=== PATIENT | female | born 1965 | race African-American/Black ===

== ENCOUNTER 2023-12-07 08:58 | Observation (INO) | payer MEDICARE, OTHER ==
[2023-12-07] MEDS: ASPIRIN 81 MG PO STA (09:17)
--- NOTE | 2023-12-07 09:18 | ED ---
General Adult HPI - General Chief complaint: Chest Pain Stated complaint: Chest pain Time Seen by Provider: 12/07/23 09:03 Source: patient, EMS, RN notes reviewed Mode of arrival: EMS Limitations: no limitations - History of Present Illness Initial comments: Patient is a 58-year-old female present to the emergency department with concerns for chest discomfort. Onset of symptoms was yesterday, worse today. No known history of similar symptoms previously. Discomfort is described as squeezing. Discomfort is rated 8/10. Patient does have associated dyspnea and nausea. Patient also has a headache which is very chronic for her secondary to history of migraines. Patient states she takes Imitrex a couple of times per week for this and does request this. Headache is similar to previous headaches. Patient also request food. - Related Data Home Medications Medication Instructions Recorded Confirmed Acetaminophen Tab [Tylenol] 650 mg PO Q4H 12/07/23 12/07/23 Aspirin EC [Ecotrin Low Dose] 81 mg PO DAILY 12/07/23 12/07/23 Atorvastatin [Lipitor] 20 mg PO HS 12/07/23 12/07/23 Ensure 1 can PO DAILY 12/07/23 12/07/23 FLUoxetine HCL [PROzac] 20 mg PO DAILY 12/07/23 12/07/23 Gabapentin 300 mg PO TID 12/07/23 12/07/23 Hyoscyamine Sulfate [Levsin] 0.125 mg PO QID PRN 12/07/23 12/07/23 Ibuprofen [Motrin Ib] 600 mg PO Q6H PRN 12/07/23 12/07/23 Levothyroxine Sodium [Synthroid] 50 mcg PO DAILY 12/07/23 12/07/23 Melatonin 10 mg PO HS 12/07/23 12/07/23 Mylanta 30 ml PO Q4H PRN 12/07/23 12/07/23 OLANZapine [ZyPREXA] 20 mg PO BID 12/07/23 12/07/23 OXcarbazepine [Trileptal] 600 mg PO DAILY 12/07/23 12/07/23 Pantoprazole Sodium [Protonix] 40 mg PO DAILY 12/07/23 12/07/23 amLODIPine [Norvasc] 2.5 mg PO DAILY 12/07/23 12/07/23 busPIRone HCl [Buspar] 10 mg PO BID 12/07/23 12/07/23 levETIRAcetam [Keppra] 500 mg PO BID 12/07/23 12/07/23 ondansetron HCL [Zofran] 8 mg PO Q6H PRN 12/07/23 12/07/23 traZODone HCL [Desyrel] 50 - 150 mg PO HS PRN 12/07/23 12/07/23 Allergies Allergy/AdvReac Type Severity Reaction Status Date / Time No Known Allergies Allergy Verified 12/07/23 10:19 Review of Systems ROS Statement: Those systems with pertinent positive or pertinent negative responses have been documented in the HPI. ROS Other: All systems not noted in ROS Statement are negative. Constitutional: Denies: fever Eyes: Denies: eye pain ENT: Denies: ear pain Respiratory: Reports: as per HPI, dyspnea. Denies: cough Cardiovascular: Reports: as per HPI, chest pain Gastrointestinal: Reports: nausea. Denies: abdominal pain Musculoskeletal: Denies: back pain Skin: Denies: rash Neurological: Denies: weakness Past Medical History Additional Past Medical History / Comment(s): Anemia, Epilepsy History of Any Multi-Drug Resistant Organisms: None Reported Past Surgical History: Bariatric Surgery Additional Past Surgical History / Comment(s): gastric bypass ; 2020 Past Psychological History: No Psychological Hx Reported Smoking Status: Former smoker Past Alcohol Use History: Abuse, Daily Past Drug Use History: None Reported General Exam Limitations: no limitations General appearance: alert, in no apparent distress Head exam: Present: normocephalic Eye exam: Present: normal appearance Neck exam: Present: normal inspection Respiratory exam: Present: normal lung sounds bilaterally. Absent: chest wall tenderness Cardiovascular Exam: Present: regular rate, normal rhythm Expanded Peripheral pulses: 2+: Radial (R), Radial (L), Posterior Tibialis (R), Posterior Tibialis (L) GI/Abdominal exam: Present: soft. Absent: distended, tenderness Extremities exam: Present: normal inspection. Absent: pedal edema, calf tenderness Neurological exam: Present: alert Psychiatric exam: Present: normal affect, normal mood Skin exam: Present: normal color Course Vital Signs 12/07/23 12/07/23 09:00 11:03 Temperature 98.5 F Pulse Rate 61 62 Respiratory 16 18 Rate Blood Pressure 140/96 169/94 O2 Sat by Pulse 99 97 Oximetry EKG Findings - EKG Results: EKG: interpreted by ERMD, sinus rhythm, normal axis, normal QRS, normal ST/T EKG shows: bradycardia Medical Decision Making - Medical Decision Making Was pt. sent in by a medical professional or institution (, [facility], [facility] [employer], urgent care, hospital, or halfway...) When possible be specific @ -[facility] Did you speak to anyone other than the patient for history (EMS, parent, family, police, friend...)? What history was obtained from this source @ -No Did you review nursing and triage notes (agree or disagree)? Why? @ -I reviewed and agree with nursing and triage notes Were old charts reviewed (outside hosp., previous admission, EMS record, old EKG, old radiological studies, urgent care reports/EKG's, halfway records)? Report findings @ -No old charts were reviewed Differential Diagnosis (chest pain, altered mental status, abdominal pain women, abdominal pain men, vaginal bleeding, weakness, fever, dyspnea, syncope, headache, dizziness, GI bleed, back pain, seizure, CVA, palpatations, mental health, musculoskeletal)? @ -Differential Chest Pain: Stable Angina, Unstable Angina, STEMI, NSTEMI Aortic Dissection, Pneumothorax, Musculoskeletal, Esophageal Spasm GERD, Cholecystitis, Pancreatitis, Zoster, this is not meant to be an all-inclusive list. EKG interpreted by me (3pts min.). @ -As above X-rays interpreted by me (1pt min.). @ -Chest x-ray shows no acute process CT interpreted by me (1pt min.). @ -CT scan without acute abnormality, see U/S interpreted by me (1pt. min.). @ -None done What testing was considered but not performed or refused? (CT, X-rays, U/S, labs)? Why? @ -None What meds were considered but not given or refused? Why? @ -None Did you discuss the management of the patient with other professionals (professionals i.e. IRIS Adams, [employer], lab, RT, psych nurse, vp digital marketing social media and crm, apprentice jockey, teacher, budget officer, catalytic case operator)? Give summary @ -Case was discussed with Dr. Robert who will admit covering hospital call Was smoking cessation discussed for >3mins.? @ -No Was critical care preformed (if so, how long)? @ -No Were there social determinants of health that impacted care today? How? (Homelessness, low income, unemployed, alcoholism, drug addiction, transportation, low edu. Level, literacy, decrease access to med. care, residential, rehab)? @ -No Was there de-escalation of care discussed even if they declined (Discuss DNR or withdrawal of care, Hospice)? DNR status @ -No What co-morbidities impacted this encounter? (DM, HTN, Smoking, COPD, CAD, Cancer, CVA, ARF, Chemo, Hep., AIDS, mental health diagnosis, sleep apnea, morbid obesity)? @ -None Was patient admitted / discharged? Hospital course, mention meds given and route, prescriptions, significant lab abnormalities, going to OR and other pertinent info. @ -Patient reevaluated and updated. Patient will be admitted. Admission orders written. Cardiac consult will be placed. Undiagnosed new problem with uncertain prognosis? @ -No Drug Therapy requiring intensive monitoring for toxicity (Heparin, Nitro, Insulin, Cardizem)? @ -No Were any procedures done? @ -No Diagnosis/symptom? @ -Chest pain Acute, or Chronic, or Acute on Chronic? @ -Acute Uncomplicated (without systemic symptoms) or Complicated (systemic symptoms)? @ -Default Side effects of treatment? @ -No Exacerbation, Progression, or Severe Exacerbation? @ -No Poses a threat to life or bodily function? How? (Chest pain, [place], [place], pneumonia, PE, COPD, DKA, ARF, appy, cholecystitis, CVA, Diverticulitis, Homicidal, Suicidal, threat to staff... and all critical care pts) @ -Threat to cardiac function - Lab Data Result diagrams: 12/07/23 09:16 12/07/23 09:16 Lab Results 12/07/23 12/07/23 12/07/23 Range/Units 09:16 09:16 09:16 WBC 4.9 (3.8-10.6) k/uL RBC 4.80 (3.80-5.40) m/uL Hgb 11.3 L (11.4-16.0) gm/dL Hct 39.1 (34.0-46.0) % MCV 81.4 (80.0-100.0) fL MCH 23.5 L (25.0-35.0) pg MCHC 28.9 L (31.0-37.0) g/dL RDW 14.7 (11.5-15.5) % Plt Count 369 (150-450) k/uL MPV 8.3 Neutrophils % 49 % Lymphocytes % 37 % Monocytes % 8 % Eosinophils % 3 % Basophils % 1 % Neutrophils # 2.4 (1.3-7.7) k/uL Lymphocytes # 1.8 (1.0-4.8) k/uL Monocytes # 0.4 (0-1.0) k/uL Eosinophils # 0.1 (0-0.7) k/uL Basophils # 0.1 (0-0.2) k/uL Hypochromasia Marked PT 10.1 (10.0-12.5) sec INR 0.9 (<1.2) APTT 22.6 (22.0-30.0) sec D-Dimer 0.69 H (<0.60) mg/L FEU Sodium 141 (137-145) mmol/L Potassium 5.6 H (3.5-5.1) mmol/L Chloride 108 H (98-107) mmol/L Carbon Dioxide 26 (22-30) mmol/L Anion Gap 7 mmol/L BUN 15 (7-17) mg/dL Creatinine 0.78 (0.52-1.04) mg/dL Est GFR (CKD-EPI)AfAm >90 (>60 ml/min/1.73 sqM) Est GFR (CKD-EPI)NonAf 83 (>60 ml/min/1.73 sqM) Glucose 85 (74-99) mg/dL Calcium 9.5 (8.4-10.2) mg/dL Magnesium 2.0 (1.6-2.3) mg/dL Total Bilirubin 0.5 (0.2-1.3) mg/dL AST 55 H (14-36) U/L ALT 33 (4-34) U/L Alkaline Phosphatase 98 (38-126) U/L Troponin I (0.000-0.034) ng/mL NT-Pro-B Natriuret Pep <20 pg/mL Total Protein 7.0 (6.3-8.2) g/dL Albumin 4.0 (3.5-5.0) g/dL Amylase 72 (30-110) U/L Lipase 165 (23-300) U/L 12/07/23 Range/Units 09:16 WBC (3.8-10.6) k/uL RBC (3.80-5.40) m/uL Hgb (11.4-16.0) gm/dL Hct (34.0-46.0) % MCV (80.0-100.0) fL MCH (25.0-35.0) pg MCHC (31.0-37.0) g/dL RDW (11.5-15.5) % Plt Count (150-450) k/uL MPV Neutrophils % % Lymphocytes % % Monocytes % % Eosinophils % % Basophils % % Neutrophils # (1.3-7.7) k/uL Lymphocytes # (1.0-4.8) k/uL Monocytes # (0-1.0) k/uL Eosinophils # (0-0.7) k/uL Basophils # (0-0.2) k/uL Hypochromasia PT (10.0-12.5) sec INR (<1.2) APTT (22.0-30.0) sec D-Dimer (<0.60) mg/L FEU Sodium (137-145) mmol/L Potassium (3.5-5.1) mmol/L Chloride (98-107) mmol/L Carbon Dioxide (22-30) mmol/L Anion Gap mmol/L BUN (7-17) mg/dL Creatinine (0.52-1.04) mg/dL Est GFR (CKD-EPI)AfAm (>60 ml/min/1.73 sqM) Est GFR (CKD-EPI)NonAf (>60 ml/min/1.73 sqM) Glucose (74-99) mg/dL Calcium (8.4-10.2) mg/dL Magnesium (1.6-2.3) mg/dL Total Bilirubin (0.2-1.3) mg/dL AST (14-36) U/L ALT (4-34) U/L Alkaline Phosphatase (38-126) U/L Troponin I <0.012 (0.000-0.034) ng/mL NT-Pro-B Natriuret Pep pg/mL Total Protein (6.3-8.2) g/dL Albumin (3.5-5.0) g/dL Amylase (30-110) U/L Lipase (23-300) U/L Disposition Clinical Impression: Chest pain Disposition: ADMITTED IP TO THIS HOSP Is patient prescribed a controlled substance at d/c from ED?: No Referrals: None,Stated [REFERRING] - 1-2 days Time of Disposition: 12:42
[2023-12-07] MEDS: NITROGLYCERIN SL TABS 0.4 MG TAB SUBLINGUAL STA (09:23)
[2023-12-07] MEDS: NITROGLYCERIN OINT 1 INCH/GM PACKET TOPICAL STA (09:23)
--- NOTE | 2023-12-07 09:44 | XR ---
EXAMINATION TYPE: XR chest 2V DATE OF EXAM: 12/07/2023 9:39 AM CLINICAL INDICATION:Female, 58 years old with history of Chest Pain; COMPARISON: Chest radiographs from 12/07/2023 TECHNIQUE: XR chest 2V Frontal view of the chest. FINDINGS: Lungs/Pleura: There is flattening of the diaphragm with increased lucency of the lungs. No evidence o f pneumothorax, pleural effusion or focal consolidation. Pulmonary vascularity: Unremarkable. Heart/mediastinum: Cardiomediastinal silhouette is unremarkable. A loop recorder projects over the le ft thorax over the heart. Musculoskeletal: No acute osseous pathology. IMPRESSION: 1. No acute cardiopulmonary disease process. 2. COPD changes.
[2023-12-07] MEDS: SUMAtriptan succinate 50 MG TAB PO STA (10:03)
[2023-12-07 10:09] LABS: Basophils # (A) 0.1 k/uL (0-0.2); Basophils % (A) 1 %; Eosinophils # (A) 0.1 k/uL (0-0.7); Eosinophils % (A) 3 %; HCT 39.1 % (34.0-46.0); HGB 11.3 gm/dL (11.4-16.0); Hypochromasia Marked; Lymphocytes # (A) 1.8 k/uL (1.0-4.8); Lymphocytes % (A) 37 %; MCH 23.5 pg (25.0-35.0); MCHC 28.9 g/dL (31.0-37.0); MCV 81.4 fL (80.0-100.0); Mean Platelet Volume 8.3; Monocytes # (A) 0.4 k/uL (0-1.0); Monocytes % (A) 8 %; Neutrophils # (A) 2.4 k/uL (1.3-7.7); Neutrophils % (A) 49 %; Platelet Count 369 k/uL (150-450); RDW 14.7 % (11.5-15.5); WBC 4.9 k/uL (3.8-10.6)
[2023-12-07 10:20] LABS: ALT 33 U/L (4-34); African American GFR (CKD) >90 (>60 ml/min/1.73 sqM); Amylase 72 U/L (30-110); Anion Gap 7 mmol/L; Blood Urea Nitrogen 15 mg/dL (7-17); Calcium 9.5 mg/dL (8.4-10.2); Carbon Dioxide 26 mmol/L (22-30); Chloride 108 mmol/L (98-107); Glucose 85 mg/dL (74-99); Lipase 165 U/L (23-300); Non-African American GFR(CKD) 83 (>60 ml/min/1.73 sqM); Sodium 141 mmol/L (137-145)
[2023-12-07 10:24] LABS: AST 55 U/L (14-36); Alkaline Phosphatase 98 U/L (38-126); Potassium 5.6 mmol/L (3.5-5.1); Total Bilirubin 0.5 mg/dL (0.2-1.3)
[2023-12-07 10:26] LABS: INR 0.9 (<1.2); Partial Thromboplastin Time 22.6 sec (22.0-30.0); Prothrombin Time 10.1 sec (10.0-12.5)
[2023-12-07 10:27] LABS: NT-Pro-B-Type Natriuretic Pept <20 pg/mL
--- NOTE | 2023-12-07 12:11 | CT ---
EXAMINATION TYPE: CT angio chest CT DLP: 213.2 mGycm, Automated exposure control for dose reduction was used. DATE OF EXAM: 12/07/2023 11:58 AM COMPARISON: Chest radiograph from same day. CLINICAL INDICATION:Female, 58 years old with history of cp; Chest pain TECHNIQUE/CONTRAST: CTA scan of the thorax is performed after the injection of 100ml mL of Isovue 370, pulmonary embolism protocol. MIP images are created and reviewed. FINDINGS: Pulmonary Artery: There is no evidence for a filling defect within the pulmonary vasculature to sugge st acute pulmonary embolism. The pulmonary artery is of normal size. No reflux of contrast into the IVC. Lungs/Pleura: No evidence of focal consolidation, pleural effusion or pneumothorax. Dependent bibasil ar subsegmental atelectasis. Elevation of the right hemidiaphragm. Airway: Large airways are patent. Heart: Moderately enlarged. No pericardial effusion.. Vasculature: No evidence of aortic aneurysm. Ectasia of the ascending thoracic aorta measuring up to 3.9 cm. Mediastinum: No gross evidence of adenopathy. Musculoskeletal: No acute osseous abnormalities Soft Tissues: Loop recorder in the anterior left chest wall. Lower neck: No significant findings. Upper Abdomen: Post surgical changes from Sylvia-en-Y gastric bypass. IMPRESSION: 1. No evidence of pulmonary embolism. 2. Ectasia of the ascending thoracic aorta measuring up to 3.9 cm. 3. Cardiomegaly.
[2023-12-07] MEDS: ONDANSETRON 4 MG/2 ML VIAL IVP STA (12:34)
[2023-12-07] MEDS ORDERED: MAG HYDROX/AL HYDROX/SIMETH 30 ML CUP PO PRN (12:39)
[2023-12-07] MEDS ORDERED: HYOSCYAMINE SULFATE 0.125 MG TAB PO PRN (12:39)
[2023-12-07] MEDS ORDERED: NITROGLYCERIN SL TABS 0.4 MG TAB SUBLINGUAL PRN (12:42)
[2023-12-07] MEDS ORDERED: ONDANSETRON 4 MG TAB PO PRN (13:00)
[2023-12-07] MEDS: ACETAMINOPHEN TAB 325 MG TAB PO SCH ×2 (13:06→19:14)
[2023-12-07] MEDS: GABAPENTIN 300 MG CAP PO SCH (15:14)
[2023-12-07] MEDS: HYDROcodone/APAP 5-325MG 1 EACH TAB PO STA ×2 (15:15→17:55)
[2023-12-07] MEDS: amLODIPine 2.5 MG TAB PO SCH (15:15)
[2023-12-07] MEDS: PANTOPRAZOLE 40 MG TABLET PO STA (17:56)
[2023-12-07] MEDS: NITROGLYCERIN OINT 1 INCH/GM PACKET TOPICAL SCH (18:59)
--- NOTE | 2023-12-08 00:15 | P.HPIM ---
History of Present Illness H&P Date: 12/07/23 Chief Complaint: Chest pain Patient is a 58-year-old female with a past medical history of seizure disorder, anemia, history of gastric bypass surgery, hypothyroidism, anxiety/depression and alcohol abuse presents to ER with complaints of chest discomfort. Patient states that her symptoms started yesterday and has been worsening. Chest pain/discomfort is mainly in the epigastric region. Denies any radiation. Reform like pressure and someone sitting on his chest. 8 out of 10 in severity. Associated nausea and mild shortness of breath. Patient also complaining of ugarte ving migraine headaches. Usually takes Imitrex couple times per week and is requesting to start back on Imitrex. Denies any episodes of dizziness or lightheadedness. No fever no chills. No cough or sputum production. No recent travel. Patient is currently at [facility] and is also homeless. EKG showed sinus rhythm with sinus bradycardia. Chest x-ray showed no acute cardiopulmonary process. COPD changes. CTA chest was done which showed no evidence for PE. Ectasia of the ascending aorta measuring up to 3.9 cm Laboratory data showed WBC 4.9 hemoglobin 11.3 and platelets 369 D-dimer 0.69 Sodium 141 potassium 5.6 with slight hemolysis and chloride 108 BUN 7 creatinine 15 AST 55 ALT 33 and alk phos 98 Troponin x 3 negative to proBNP less than 20 and albumin 4.0 and mL and lipase not elevated. Review of Systems Constitutional: Patient denies any fever or chills . No generalized weakness or weight loss. Abdomen: Patient does have nausea. No episodes of vomiting. No complaints of diarrhea and abdominal pain. Cardiovascular: Patient complains of epigastric chest discomfort and mild shortness of breath. No leg swelling. No palpitations.. Respiratory: patient denied any cough or sputum production. Positive for mild shortness of breath Neurologic: Patient denied any numbness or tingling. Migraine headache. Musculoskeletal: Patient denies any complaints of joint swelling or deformity. Skin: Negative Psychiatric: Negative Endocrine: No heat or cold intolerance. No recent weight gain. Genitourinary: No dysuria or hematuria. All other 14 point ROS negative except the above Past Medical History Additional Past Medical History / Comment(s): Anemia, Epilepsy History of Any Multi-Drug Resistant Organisms: None Reported Past Surgical History: Bariatric Surgery Additional Past Surgical History / Comment(s): gastric bypass ; 2020 Past Psychological History: No Psychological Hx Reported Smoking Status: Former smoker Past Alcohol Use History: Abuse, Daily Past Drug Use History: None Reported Medications and Allergies Home Medications Medication Instructions Recorded Confirmed Type Acetaminophen Tab [Tylenol] 650 mg PO Q4H 12/07/23 12/07/23 History Aspirin EC [Ecotrin Low Dose] 81 mg PO DAILY 12/07/23 12/07/23 History Atorvastatin [Lipitor] 20 mg PO HS 12/07/23 12/07/23 History Ensure 1 can PO DAILY 12/07/23 12/07/23 History FLUoxetine HCL [PROzac] 20 mg PO DAILY 12/07/23 12/07/23 History Gabapentin 300 mg PO TID 12/07/23 12/07/23 History Hyoscyamine Sulfate [Levsin] 0.125 mg PO QID PRN 12/07/23 12/07/23 History Levothyroxine Sodium [Synthroid] 50 mcg PO DAILY 12/07/23 12/07/23 History Melatonin 10 mg PO HS 12/07/23 12/07/23 History Mylanta 30 ml PO Q4H PRN 12/07/23 12/07/23 History OLANZapine [ZyPREXA] 20 mg PO BID 12/07/23 12/07/23 History OXcarbazepine [Trileptal] 600 mg PO DAILY 12/07/23 12/07/23 History Pantoprazole Sodium [Protonix] 40 mg PO DAILY 12/07/23 12/07/23 History amLODIPine [Norvasc] 2.5 mg PO DAILY 12/07/23 12/07/23 History busPIRone HCl [Buspar] 10 mg PO BID 12/07/23 12/07/23 History levETIRAcetam [Keppra] 500 mg PO BID 12/07/23 12/07/23 History ondansetron HCL [Zofran] 8 mg PO Q6H PRN 12/07/23 12/07/23 History traZODone HCL [Desyrel] 50 - 150 mg PO HS PRN 12/07/23 12/07/23 History Allergies Allergy/AdvReac Type Severity Reaction Status Date / Time No Known Allergies Allergy Verified 12/07/23 10:19 Physical Exam Vitals: Vital Signs Temp Pulse Resp BP Pulse Ox 12/07/23 11:03 62 18 169/94 97 12/07/23 09:00 98.5 F 61 16 140/96 99 Intake and Output 12/06/23 12/07/23 12/07/23 22:59 06:59 14:59 Other: Weight 66.224 kg PHYSICAL EXAMINATION: Patient is lying in the bed comfortably, no acute distress, awake alert and oriented.. HEENT: Normocephalic. Neck is supple. Pupils reactive. Nostrils clear. Oral cavity is moist. Neck reveals no JVD, carotid bruits, or thyromegaly. CHEST EXAMINATION: Trachea is central. Symmetrical expansion. Lung ribeiro clear to auscultation and percussion. CARDIAC: Normal S1, S2 with no gallops. No murmurs ABDOMEN: Soft. Bowel sounds normal. No organomegaly. No abdominal bruits. Extremities: reveal no edema. No clubbing or cyanosis Neurologically awake, alert, oriented x3 with well-coordinated movements. No focal deficits noted Skin: No rash or skin lesions. Psychiatric: Coperative. Nonsuicidal Musculoskeletal: No joint swelling or deformity. Normal range of motion. Results CBC & Chem 7: 12/07/23 09:16 12/08/23 12:58 Labs: Abnormal Lab Results - Last 24 Hours (Table) 12/07/23 12/07/23 12/07/23 Range/Units 09:16 09:16 09:16 Hgb 11.3 L (11.4-16.0) gm/dL MCH 23.5 L (25.0-35.0) pg MCHC 28.9 L (31.0-37.0) g/dL D-Dimer 0.69 H (<0.60) mg/L FEU Potassium 5.6 H (3.5-5.1) mmol/L Chloride 108 H (98-107) mmol/L AST 55 H (14-36) U/L Thrombosis Risk Factor Assmnt - DVT/VTE Prophylaxis DVT/VTE Prophylaxis: Pharmacologic Prophylaxis ordered Assessment and Plan Assessment: Atypical chest pain mainly in the epigastric region. Rule out ACS. Severe alcohol abuse Migraine headaches History of seizure disorder Hypothyroidism Anxiety depression and bipolar disorder Prior history of smoking Ectasia of the ascending thoracic aorta measuring up to 3.9 cm as per CTA chest DVT prophylaxis with heparin subcu Plan: Patient will be continued on telemonitoring. Continue with aspirin and statins. Patient was started back on home medication including Keppra and levothyroxine other psychiatric medications. Patient was given a dose of Pepcid IV in the ER and will continue with PPI. Cardiology was consulted for evaluation. Patient was started on thiamine and monitor for withdrawal symptoms. Continue to follow closely. Time with Patient: Greater than 30
[2023-12-08] MEDS: ATORVASTATIN 20 MG TAB PO SCH (01:44)
[2023-12-08] MEDS: MELATONIN 5 MG TABLET PO SCH (01:44)
[2023-12-08] MEDS: levETIRAcetam 500 MG TAB PO SCH (01:45)
[2023-12-08] MEDS: busPIRone HCl 10 MG TAB PO SCH (01:45)
[2023-12-08] MEDS: OLANZapine 10 MG TAB PO SCH (01:45)
[2023-12-08] MEDS: HYDROcodone/APAP 5-325MG 1 EACH TAB PO PRN (01:52)
[2023-12-08] MEDS: LEVOTHYROXINE 50 MCG TAB PO SCH (06:53)
[2023-12-08] MEDS: PANTOPRAZOLE 40 MG TABLET PO SCH (07:21)
[2023-12-08] MEDS ORDERED: ASPIRIN 325 MG TAB PO SCH (09:00)
[2023-12-08] MEDS ORDERED: NON FORMULARY DRUG (Ensure 1 CAN Ml) PO SCH (09:00)
[2023-12-08] MEDS ORDERED: amLODIPine 2.5 MG TAB PO SCH (09:00)
[2023-12-08] MEDS: ASPIRIN 81 MG PO SCH (09:10)
[2023-12-08] MEDS: OXcarbazepine 300 MG TAB PO SCH (09:10)
[2023-12-08] MEDS: FLUoxetine HCL 20 MG CAP PO SCH (09:10)
--- NOTE | 2023-12-08 09:49 | P.CRDCN ---
History of Present Illness Consult date: 12/08/23 Consult reason: chest pain Chief complaint: cp History of present illness: History of present illness: Patient is a pleasant 58-year-old female with significant past medical history of migraines and epilepsy who presented with complaints of chest pressure, headache, upset stomach. She reports family history of mother having a pacemaker and currently living 98. She does smoke 8 cigarettes a day, denies any alcohol or drug use. She reports that she had had a migraine for few days and then developed a chest pressure and tightness that woke her up in the middle of the night. She did feel nauseous and diaphoretic with this. She states she typically does not feel nauseous with her migraines. She denies having any shortness of breath. She has not had any prior cardiac workup. CTA of the chest was negative for PE. Labs reviewed: Troponin negative x 3, BNP less than 20. She is still not feeling well this morning, however, chest pain and pressure has resolved. She still has a headache. REVIEW OF SYSTEMS: No fever or chills. No cough or expectoration. No diaphoresis. Patient denies headache, dizziness, blurred vision, double vision. Patient denies any stomach discomfort. No nausea, vomiting. No hematochezia. No hematemesis. Denies any black stools or blood in his stools. Denies dysuria or hematuria. No muscle weakness or numbness. No chest pain or pressure. PHYSICAL EXAMINATION: This is a 58-year-old female in no apparent distress at the time of my examination. HEENT: Head is atraumatic, normocephalic. Pupils are equal, round. Sclerae anicteric. Conjunctivae are clear. Mucous membranes of the mouth are moist. Neck is supple. There is no jugular venous distention. No carotid bruit is heard. CHEST EXAMINATION: Lungs are clear to auscultation. No chest wall tenderness is noted on palpation or with deep breathing. HEART EXAMINATION: Heart regular rate and rhythm. S1, S2 heard. No murmurs, gallops or rub. ABDOMEN: Soft, nontender. Bowel sounds are heard. EXTREMITIES: 2+ peripheral pulses with no evidence of peripheral edema and no calf tenderness noted. NEUROLOGIC EXAMINATION: Patient is awake, alert and oriented x3. IMPRESSION AND PLAN: Chest pain Migraines Epilepsy Tobacco abuse PLAN: We will check ECHO to eval heart function and structure. We will check Stress ECHO to rule out inducible ischemia, she did eat breakfast so unable to do today, would be ok to do stress test as outpatient if ECHO is unremarkable and she is feeling better. Will try GI cocktail. I am dictating on behalf of Dr. Navi Valero's history/physical and assessment/plan. Past Medical History Additional Past Medical History / Comment(s): Anemia, Epilepsy History of Any Multi-Drug Resistant Organisms: None Reported Past Surgical History: Bariatric Surgery Additional Past Surgical History / Comment(s): gastric bypass ; 2020 Past Psychological History: No Psychological Hx Reported Smoking Status: Former smoker Past Alcohol Use History: Abuse, Daily Past Drug Use History: None Reported Medications and Allergies Home Medications Medication Instructions Recorded Confirmed Type Acetaminophen Tab [Tylenol] 650 mg PO Q4H 12/07/23 12/07/23 History Aspirin EC [Ecotrin Low Dose] 81 mg PO DAILY 12/07/23 12/07/23 History Atorvastatin [Lipitor] 20 mg PO HS 12/07/23 12/07/23 History Ensure 1 can PO DAILY 12/07/23 12/07/23 History FLUoxetine HCL [PROzac] 20 mg PO DAILY 12/07/23 12/07/23 History Gabapentin 300 mg PO TID 12/07/23 12/07/23 History Hyoscyamine Sulfate [Levsin] 0.125 mg PO QID PRN 12/07/23 12/07/23 History Ibuprofen [Motrin Ib] 600 mg PO Q6H PRN 12/07/23 12/07/23 History Levothyroxine Sodium [Synthroid] 50 mcg PO DAILY 12/07/23 12/07/23 History Melatonin 10 mg PO HS 12/07/23 12/07/23 History Mylanta 30 ml PO Q4H PRN 12/07/23 12/07/23 History OLANZapine [ZyPREXA] 20 mg PO BID 12/07/23 12/07/23 History OXcarbazepine [Trileptal] 600 mg PO DAILY 12/07/23 12/07/23 History Pantoprazole Sodium [Protonix] 40 mg PO DAILY 12/07/23 12/07/23 History amLODIPine [Norvasc] 2.5 mg PO DAILY 12/07/23 12/07/23 History busPIRone HCl [Buspar] 10 mg PO BID 12/07/23 12/07/23 History levETIRAcetam [Keppra] 500 mg PO BID 12/07/23 12/07/23 History ondansetron HCL [Zofran] 8 mg PO Q6H PRN 12/07/23 12/07/23 History traZODone HCL [Desyrel] 50 - 150 mg PO HS PRN 12/07/23 12/07/23 History Allergies Allergy/AdvReac Type Severity Reaction Status Date / Time No Known Allergies Allergy Verified 12/07/23 10:19 Physical Exam Vitals: Vital Signs Temp Pulse Pulse Resp BP Pulse Ox 12/08/23 06:00 59 L 16 129/100 97 12/08/23 05:00 69 16 131/78 98 12/08/23 03:00 61 16 122/88 96 12/08/23 01:00 64 16 120/86 98 12/07/23 23:42 72 12/07/23 23:41 20 12/07/23 23:40 76 18 118/77 98 12/07/23 17:58 73 18 144/89 100 12/07/23 14:29 93 18 157/104 95 12/07/23 11:03 62 18 169/94 97 12/07/23 09:00 98.5 F 61 16 140/96 99 Results 12/07/23 09:16 12/07/23 09:16 Cardiac Enzymes 12/07/23 12/07/23 12/07/23 Range/Units 09:16 09:16 13:12 AST 55 H (14-36) U/L Troponin I <0.012 <0.012 (0.000-0.034) ng/mL 12/07/23 Range/Units 16:39 AST (14-36) U/L Troponin I <0.012 (0.000-0.034) ng/mL Coagulation 12/07/23 Range/Units 09:16 PT 10.1 (10.0-12.5) sec APTT 22.6 (22.0-30.0) sec CBC 12/07/23 Range/Units 09:16 WBC 4.9 (3.8-10.6) k/uL RBC 4.80 (3.80-5.40) m/uL Hgb 11.3 L (11.4-16.0) gm/dL Hct 39.1 (34.0-46.0) % Plt Count 369 (150-450) k/uL Comprehensive Metabolic Panel 12/07/23 Range/Units 09:16 Sodium 141 (137-145) mmol/L Potassium 5.6 H (3.5-5.1) mmol/L Chloride 108 H (98-107) mmol/L Carbon Dioxide 26 (22-30) mmol/L BUN 15 (7-17) mg/dL Creatinine 0.78 (0.52-1.04) mg/dL Glucose 85 (74-99) mg/dL Calcium 9.5 (8.4-10.2) mg/dL AST 55 H (14-36) U/L ALT 33 (4-34) U/L Alkaline Phosphatase 98 (38-126) U/L Total Protein 7.0 (6.3-8.2) g/dL Albumin 4.0 (3.5-5.0) g/dL Current Medications Generic Name Dose Route Start Last Admin Trade Name Fre PRN Reason Stop Dose Admin Acetaminophen 650 mg 12/07/23 19:00 12/08/23 07:22 Acetaminophen Tab 325 Mg Tab PO Not Given Q6H [facility] Hydrocodone Bitart/Acetaminophen 1 each 12/07/23 16:24 12/08/23 01:52 Hydrocodone/Apap 5-325mg 1 Each Tab PO 1 each Q6HR PRN Administration Pain Al Hydroxide/Mg Hydroxide 30 ml 12/07/23 12:39 Mag Hydrox/Al Hydrox/Simeth 30 Ml Cup PO Q4H PRN GI Upset Amlodipine Besylate 2.5 mg 12/07/23 15:00 12/07/23 15:15 Amlodipine 2.5 Mg Tab PO 2.5 mg DAILY HUBER Administration Aspirin 81 mg 12/08/23 09:00 Aspirin 81 Mg PO DAILY [facility] Atorvastatin Calcium 20 mg 12/07/23 21:00 12/08/23 01:44 Atorvastatin 20 Mg Tab PO 20 mg HS [facility]BER Administration Buspirone HCl 10 mg 12/07/23 21:00 12/08/23 01:45 Buspirone Hcl 10 Mg Tab PO 10 mg BID [facility] Administration Fluoxetine HCl 20 mg 12/08/23 09:00 Fluoxetine Hcl 20 Mg Cap PO DAILY [facility] Gabapentin 300 mg 12/07/23 16:00 12/08/23 01:47 Gabapentin 300 Mg Cap PO 300 mg TID [facility]BER Administration Hyoscyamine 0.125 mg 12/07/23 12:39 Hyoscyamine Sulfate 0.125 Mg Tab PO QID PRN GI Upset Levetiracetam 500 mg 12/07/23 21:00 12/08/23 01:45 Levetiracetam 500 Mg Tab PO 500 mg BID [facility] Administration Levothyroxine Sodium 50 mcg 12/08/23 06:30 12/08/23 06:53 Levothyroxine 50 Mcg Tab PO 50 mcg 0630 [facility] Administration Melatonin 10 mg 12/07/23 21:00 12/08/23 01:44 Melatonin 5 Mg Tablet PO 10 mg HS [facility] Administration Nitroglycerin 0.4 mg 12/07/23 12:42 Nitroglycerin Sl Tabs 0.4 Mg Tab SUBLINGUAL Q5M PRN Chest Pain Nitroglycerin 1 inch 12/07/23 18:00 12/08/23 06:52 Nitroglycerin Oint 1 Inch/Gm Packet TOPICAL Not Given Q6HR [facility] Olanzapine 20 mg 12/07/23 21:00 12/08/23 01:45 Olanzapine 10 Mg Tab PO 20 mg BID [facility] Administration Ondansetron HCl 8 mg 12/07/23 13:00 Ondansetron 4 Mg Tab PO Q6H PRN Nausea Oxcarbazepine 600 mg 12/08/23 09:00 Oxcarbazepine 300 Mg Tab PO DAILY [facility] Pantoprazole Sodium 40 mg 12/08/23 07:30 12/08/23 07:21 Pantoprazole 40 Mg Tablet PO 40 mg DAILY@0730 [facility] Administration 12/07/23 09:16 12/07/23 09:16
[2023-12-08] MEDS: MAG HYDROX/AL HYDROX/SIMETH 30 ML, HYOSCYAMINE ELIXIR 10 ML, LIDOCAINE VISCOUS 2% 10 ML PO ONE (10:40)
[2023-12-08 13:51] LABS: African American GFR (CKD) 87 (>60 ml/min/1.73 sqM); Anion Gap 6 mmol/L; Blood Urea Nitrogen 15 mg/dL (7-17); Calcium 9.6 mg/dL (8.4-10.2); Carbon Dioxide 25 mmol/L (22-30); Chloride 108 mmol/L (98-107); Glucose 172 mg/dL (74-99); Non-African American GFR(CKD) 76 (>60 ml/min/1.73 sqM); Potassium 4.8 mmol/L (3.5-5.1); Sodium 139 mmol/L (137-145)
[2023-12-08] MEDS ORDERED: REGADENOSON 0.4 MG/5 ML SYRINGE IV PRN (14:30)
[2023-12-08] MEDS ORDERED: CAFFEINE CITRATE 60 MG/3 ML VIAL IV PRN (14:30)
[2023-12-08] MEDS ORDERED: AMINOPHYLLINE 500 MG/20 ML VIAL IV PRN (14:30)
[2023-12-08 15:51] LABS: Chol/HDL Ratio 2.46 Ratio; LDL Cholesterol,Calculated 55.5 mg/dL (0.0-131.0)
[2023-12-08] MEDS: SUMAtriptan succinate 50 MG TAB PO PRN (21:17)
[2023-12-09] MEDS: HEPARIN SODIUM,PORCINE 5,000 UNIT/ML 1 ML VIAL SQ SCH (01:18)
[2023-12-09] MEDS ORDERED: REGADENOSON 0.4 MG/5 ML SYRINGE IV PRN (06:00)
[2023-12-09 07:10] VITALS: RESP 17
[2023-12-09 08:53] LABS: Basophils # (A) 0.08 X 10*3/uL (0.00-0.10); Basophils % (A) 1.4 %; Eosinophils # (A) 0.16 X 10*3/uL (0.04-0.35); Eosinophils % (A) 2.8 %; HCT 36.9 % (37.2-46.3); HGB 11.5 g/dL (12.0-15.0); Lymphocytes # (A) 2.51 X 10*3/uL (0.90-5.00); MCH 23.7 pg (27.0-32.0); MCHC 31.2 g/dL (32.0-37.0); MCV 76.1 FL (80.0-97.0); Mean Platelet Volume 10.9 FL (9.5-12.2); Monocytes # (A) 0.54 X 10*3/uL (0.20-1.00); Monocytes % (A) 9.5 %; NRBC Per 100 WBC 0 X 10*3/uL (0.00-0.01); Neutrophils % (A) 42.1 %; Platelet Count 386 X 10*3/uL (140-440); RBC 4.85 X 10*6/uL (4.10-5.20); RDW 14.2 % (11.5-14.5)
[2023-12-09 09:03] LABS: BUN/Creat Ratio 25.75 Ratio (12.00-20.00); Blood Urea Nitrogen 20.6 mg/dL (9.0-27.0); Calcium 9.5 mg/dL (8.7-10.3); Carbon Dioxide 26.4 mmol/L (21.6-31.8); Chloride 103 mmol/L (96-109); Glucose 102 mg/dL (70-110); Potassium 4.5 mmol/L (3.5-5.5); Sodium 140 mmol/L (135-145)
--- NOTE | 2023-12-09 10:19 | CA ---
Transthoracic Echo Report Name: Alona Asher Age: 58 Gender: F : 1965 Exam Date: 12/08/2023 15:52 Exam Location: [facility] Ht (in): 60 Wt (lb): 146 Ordering Physician: Shanell Robb Attending/Referring Phys: Roofing Superintendent Cristela Baldwin RDCS Procedure CPT: Indications: CP Cardiac Hx: Technical Quality: Fair Contrast 1: Total Dose (mL): Contrast 2: Total Dose (mL): MEASUREMENTS (Male / Female) Normal Values 2D ECHO LV Diastolic Diameter PLAX 2.6 cm 4.2 - 5.9 / 3.9 - 5.3 cm LV Systolic Diameter PLAX 1.4 cm IVS Diastolic Thickness 1.7 cm 0.6 - 1.0 / 0.6 - 0.9 cm LVPW Diastolic Thickness 1.6 cm 0.6 - 1.0 / 0.6 - 0.9 cm LV Relative Wall Thickness 1.3 RV Internal Dim ED PLAX 3.6 cm LA Volume 56.5 cm??? 18 - 58 / 22 - 52 cm??? LA Volume Index 33.3 cm???/m??? 16 - 28 cm???/m??? M-MODE Aortic Root Diameter MM 3.4 cm LA Systolic Diameter MM 3.6 cm LA Ao Ratio MM 1.0 AV Cusp Separation MM 2.2 cm DOPPLER AV Peak Velocity 144.7 cm/s AV Peak Gradient 8.4 mmHg AV Mean Velocity 94.0 cm/s AV Mean Gradient 4.0 mmHg AV Velocity Time Integral 26.8 cm LVOT Peak Velocity 130.3 cm/s LVOT Peak Gradient 6.8 mmHg LVOT Velocity Time Integral 26.3 cm MV Area PHT 2.6 cm??? Mitral E Point Velocity 79.2 cm/s Mitral A Point Velocity 88.1 cm/s Mitral E to A Ratio 0.9 MV Deceleration Time 289.5 ms MV E' Velocity 6.0 cm/s Mitral E to MV E' Ratio 13.2 TR Peak Velocity 246.0 cm/s TR Peak Gradient 24.2 mmHg Right Ventricular Systolic Press 29.2 mmHg FINDINGS Left Ventricle Severely increased septal wall thickness. Moderately increased posterior wall thickness. Normal left ventricular systolic function with no obvious regional wall motion abnormalities. Left ventricular cavity size normal. Left ventricular ejection fraction is estimated at 55-60%. Grade 1 diastolic dysfunction. Right Ventricle Mild right ventricular dilatation. Right ventricular systolic pressure within normal limits. Right Atrium Mild right atrial dilatation. Left Atrium Mildly increased left atrial volume. Mitral Valve Structurally normal mitral valve. Mild mitral annular calcification. Mitral valve thickened. Mild mitral regurgitation. Aortic Valve Trileaflet aortic valve. No aortic valve stenosis or regurgitation. Tricuspid Valve Structurally normal tricuspid valve. Mild tricuspid regurgitation. Pulmonic Valve Structurally normal pulmonic valve. Trace pulmonic regurgitation. Pericardium No pericardial effusion. Aorta Normal size aortic root and proximal ascending aorta. CONCLUSIONS Severely increased left ventricular wall thickness Left ventricular ejection fraction 55-60% Mild mitral regurgitation Mild tricuspid regurgitation RVSP 29 Previewed by: Dr. Navi Valero DO (Electronically Signed) Final Date: 09 December 2023 10:18
--- NOTE | 2023-12-09 10:23 | P.PN ---
Subjective History of present illness: Patient is a pleasant 58-year-old female with significant past medical history of migraines and epilepsy who presented with complaints of chest pressure, headache, upset stomach. She reports family history of mother having a pacemaker and currently living 98. She does smoke 8 cigarettes a day, denies any alcohol or drug use. She reports that she had had a migraine for few days and then developed a chest pressure and tightness that woke her up in the middle of the night. She did feel nauseous and diaphoretic with this. She states she typically does not feel nauseous with her migraines. She denies having any shortness of breath. She has not had any prior cardiac workup. CTA of the chest was negative for PE. Labs reviewed: Troponin negative x 3, BNP less than 20. She is still not feeling well this morning, however, chest pain and pressure has resolved. She still has a headache. 12/08 patient seen and examined. Patient still having some chest pain. She did get a GI cocktail with some improvement. Echocardiogram shows preserved EF without significant valvular disease with moderate to severe left ventricular hypertrophy. Awaiting stress test today. REVIEW OF SYSTEMS: No fever or chills. No cough or expectoration. No diaphoresis. Patient denies headache, dizziness, blurred vision, double vision. Patient denies any stomach discomfort. No nausea, vomiting. No hematochezia. No hematemesis. Denies any black stools or blood in his stools. Denies dysuria or hematuria. No muscle weakness or numbness. No chest pain or pressure. PHYSICAL EXAMINATION: This is a 58-year-old female in no apparent distress at the time of my examination. HEENT: Head is atraumatic, normocephalic. Pupils are equal, round. Sclerae anicteric. Conjunctivae are clear. Mucous membranes of the mouth are moist. Neck is supple. There is no jugular venous distention. No carotid bruit is heard. CHEST EXAMINATION: Lungs are clear to auscultation. No chest wall tenderness is noted on palpation or with deep breathing. HEART EXAMINATION: Heart regular rate and rhythm. S1, S2 heard. No murmurs, gallops or rub. ABDOMEN: Soft, nontender. Bowel sounds are heard. EXTREMITIES: 2+ peripheral pulses with no evidence of peripheral edema and no calf tenderness noted. NEUROLOGIC EXAMINATION: Patient is awake, alert and oriented x3. IMPRESSION AND PLAN: Chest pain Migraines Epilepsy Tobacco abuse PLAN: Await stress test. Much of her chest pain did improve with GI cocktail and more likely GI source. Echo showing preserved EF. If stress test normal, patient may be discharged home from a cardiology standpoint. Objective - Vital Signs Vital signs: Vital Signs Temp 98.0 F 12/09/23 07:00 Pulse 60 12/09/23 07:00 Resp 17 12/09/23 07:00 BP 138/89 12/09/23 07:00 Pulse Ox 97 12/09/23 07:00 FiO2 Intake & Output 12/08/23 12/09/23 12/09/23 18:59 06:59 18:59 Intake Total 949 Balance 949 Weight 66.224 kg Intake: Oral 949 Other: # Voids 1 2 - Labs CBC & Chem 7: 12/09/23 05:47 12/09/23 05:43 Labs: Abnormal Lab Results - Last 24 Hours (Table) 12/08/23 12/08/23 12/09/23 Range/Units 08:30 12:58 05:43 Hgb (12.0-15.0) g/dL Hct (37.2-46.3) % MCV (80.0-97.0) FL MCH (27.0-32.0) pg MCHC (32.0-37.0) g/dL Chloride 108 H (98-107) mmol/L BUN/Creatinine Ratio 25.75 H (12.00-20.00) Ratio Glucose 172 H (74-99) mg/dL Triglycerides 218.00 H (0.00-149.00) mg/dL VLDL Cholesterol, Calc 43.60 H (5.00-40.00) mg/dL HDL Cholesterol 67.90 H (40.00-60.00) mg/dL 12/09/23 Range/Units 05:47 Hgb 11.5 L (12.0-15.0) g/dL Hct 36.9 L (37.2-46.3) % MCV 76.1 L (80.0-97.0) FL MCH 23.7 L (27.0-32.0) pg MCHC 31.2 L (32.0-37.0) g/dL Chloride (98-107) mmol/L BUN/Creatinine Ratio (12.00-20.00) Ratio Glucose (74-99) mg/dL Triglycerides (0.00-149.00) mg/dL VLDL Cholesterol, Calc (5.00-40.00) mg/dL HDL Cholesterol (40.00-60.00) mg/dL
[2023-12-09] MEDS: THIAMINE 100 MG TAB PO SCH (10:32)
--- NOTE | 2023-12-09 12:28 | CA ---
Lexiscan Nuclear Stress Test Report Name: Alona Asher Exam Date: 12/09/2023 09:21 Exam Location: [facility] Ht (in): 60 Wt (lb): 146 BSA: 1.63 Ordering Phys: Navi Valero DO Referring Phys: GENET Technologist: GINNY Age: 58 Gender: F : 1965 Procedure CPT: Indications: Reflex order-Stress test ICD-10 Codes: Patient History: Chest pain, hypertension and hyperlipidemia. Medications: Meds past 24 hrs: Pretest Chest Pain: STRESS TEST Lexiscan Protocol Exercise Duration (min:sec): 02:[address] Depressions (mm): Angina Score: Mahmood Score: Resting HR (bpm): 50 Peak HR (bpm): 92 Resting BP (mmHg): 129 / 88 Peak BP (mmHg): 135 / 81 MPHR: 160 Target HR: 136 % MPHR: 57 METS: 1.0 Total Dose: Peak Dose: Atropine: Double Product: 97266 BP Response: Stress Termination: INFUSION COMPLETE Stress Symptoms: NO SYMPTOMS Stress Summary: ECG ANALYSIS Resting ECG: Stress ECG: CONCLUSIONS At baseline EKG showed normal sinus rhythm, normal axis, no significant ST or T wave abnormalities. Patient recieved IV infusion of Lexiscan 0.4mg and at peak infusion EKG showed no significant change from baseline. Conclusions: 1. Normal EKG response to Lexiscan infusion 2. Nuclear imaging to be reported separately. Dr. Navi Valero DO (Electronically Signed) Final Date: 09 December 2023 12:27
--- NOTE | 2023-12-09 13:24 | NM ---
EXAMINATION TYPE: NM stress lexiscan cardiolite DATE OF EXAM: 12/09/2023 COMPARISON: NONE CLINICAL INDICATION: Female, 58 years old with history of re: CP; TECHNIQUE: After the intravenous administration of 10 mCi Tc 99m Sestamibi - Cardiolite resting SPEC T images acquired 50 minutes post injection. The patient received 0.4mg Lexiscan, 25.9 mCi Tc 99m Sestamibi - Stress images obtained [address] injection FINDINGS: Review of stress and rest SPECT images demonstrates no distinct perfusion abnormality. Gated analysi s shows mild global hypokinesis with an estimated left ventricular ejection fraction of 51 %. TID is calculated as 0.84. IMPRESSION: Mild global hypokinesis with an estimated LVEF of 51%. No discrete reversibility is seen. Note that the Polar map suggests a tiny area of apical reversibility not well corroborated on the SP ECT images.
--- NOTE | 2023-12-09 14:21 | P.DS ---
Providers Date of admission: 12/07/23 12:44 Expected date of discharge: 12/09/23 Attending physician: Greg Robert Consults: 12/07/23 12:42 Consult Physician Urgent Consulting Provider: Allen Coleman Consult Reason/Comments: chest pain Do you want consulting provider notified?: Yes Primary care physician: Physician Nonstaff Hospital Course: Final diagnosis Atypical chest pain mainly in the epigastric region. Ruled out ACS. 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 Patient will follow-up with her primary care provider in the outpatient setting upon discharge. Patient is to continue with medications as prescribed and outpatient follow-up with cardiology as scheduled. Total time taken is greater than 35 minutes. Hospital course This is a 58-year-old female who was recently admitted with chest pain in the epigastric region, ruled out ACS. Cardiology evaluated the patient recommending stress testing which shows mild global hypokinesis with an estimated LVEF of 51% with no discrete reversibility noted. Recommend continue with current medications and outpatient follow-up with cardiology in the outpatient setting. Patient was at [facility] for continued alcohol rehab and just got there last week and would like to return to continue inpatient rehab. Patient is currently afebrile with no reports of chest pain or shortness of breath. Patient is up and walking the halls and anxious and wants to leave to return to rehab. Patient is medically stable at this time and again recommend outpatient follow- up with primary care provider as well as cardiology. Currently no reports of chest pain, shortness of breath, or palpitations. Patient is afebrile. No reports of nausea or vomiting and patient is tolerating diet. Patient will be going to [facility] today. Guarded prognosis. Physical exam: Gen: This is a 58-year-old female who is awake, alert and oriented x 3, well-developed, well-nourished, elderly appearing HEENT: Head is atraumatic, normocephalic. Pupils equal, round. Sclerae is anicteric. NECK: Supple. No JVD. No lymphadenopathy. No thyromegaly. LUNGS: Clear to auscultation. No wheezes or rhonchi. No intercostal retractions. HEART: Regular rate and rhythm. No murmur. ABDOMEN: Soft. Bowel sounds are present. No masses. No tenderness. EXTREMITIES: No pedal edema. No calf tenderness. Gait is steady on exam NEUROLOGICAL: Patient is awake, alert and oriented x3. Cranial nerves 2 through 12 are grossly intact. Please refer to medication reconciliation sheet for a list of medications. The impression and plan of care has been dictated by Freda Busby, Nurse Practitioner as directed. Dr. Yesica MD I have performed a history and examination and MDM of this patient, discussed the same with the dictator, and agree with the dictator's assessment and plan as written ,documented as a scribe. Based on total visit time, I have performed more than 50% of the visit. Patient Condition at Discharge: Fair Plan - Discharge Summary New Discharge Prescriptions: Continue Aspirin EC [Ecotrin Low Dose] 81 mg PO DAILY Ensure 1 can PO DAILY FLUoxetine HCL [PROzac] 20 mg PO DAILY Hyoscyamine Sulfate [Levsin] 0.125 mg PO QID PRN PRN Reason: Gi Upset levETIRAcetam [Keppra] 500 mg PO BID Melatonin 10 mg PO HS OLANZapine [ZyPREXA] 20 mg PO BID Pantoprazole Sodium [Protonix] 40 mg PO DAILY Mylanta 30 ml PO Q4H PRN PRN Reason: Gi Upset Acetaminophen Tab [Tylenol] 650 mg PO Q4H amLODIPine [Norvasc] 2.5 mg PO DAILY Atorvastatin [Lipitor] 20 mg PO HS busPIRone HCl [Buspar] 10 mg PO BID Gabapentin 300 mg PO TID Levothyroxine Sodium [Synthroid] 50 mcg PO DAILY ondansetron HCL [Zofran] 8 mg PO Q6H PRN PRN Reason: Nausea OXcarbazepine [Trileptal] 600 mg PO DAILY traZODone HCL [Desyrel] 50 - 150 mg PO HS PRN PRN Reason: Insomnia Discontinued Ibuprofen [Motrin Ib] 600 mg PO Q6H PRN PRN Reason: Pain Discharge Medication List Acetaminophen Tab [Tylenol] 650 mg PO Q4H 12/07/23 [History] Aspirin EC [Ecotrin Low Dose] 81 mg PO DAILY 12/07/23 [History] Atorvastatin [Lipitor] 20 mg PO HS 12/07/23 [History] Ensure 1 can PO DAILY 12/07/23 [History] FLUoxetine HCL [PROzac] 20 mg PO DAILY 12/07/23 [History] Gabapentin 300 mg PO TID 12/07/23 [History] Hyoscyamine Sulfate [Levsin] 0.125 mg PO QID PRN 12/07/23 [History] Levothyroxine Sodium [Synthroid] 50 mcg PO DAILY 12/07/23 [History] Melatonin 10 mg PO HS 12/07/23 [History] Mylanta 30 ml PO Q4H PRN 12/07/23 [History] OLANZapine [ZyPREXA] 20 mg PO BID 12/07/23 [History] OXcarbazepine [Trileptal] 600 mg PO DAILY 12/07/23 [History] Pantoprazole Sodium [Protonix] 40 mg PO DAILY 12/07/23 [History] amLODIPine [Norvasc] 2.5 mg PO DAILY 12/07/23 [History] busPIRone HCl [Buspar] 10 mg PO BID 12/07/23 [History] levETIRAcetam [Keppra] 500 mg PO BID 12/07/23 [History] ondansetron HCL [Zofran] 8 mg PO Q6H PRN 12/07/23 [History] traZODone HCL [Desyrel] 50 - 150 mg PO HS PRN 12/07/23 [History] Follow up Appointment(s)/Referral(s): Anna Tovar MD [STAFF PHYSICIAN] - 1 Week Activity/Diet/Wound Care/Special Instructions: Await negative stress test and clearance from cardiology for discharge Activity as tolerated Patient is returning to [facility] Patient is medically stable to continue with inpatient alcohol rehab Continue with medications as prescribed Recommend outpatient follow-up with primary care provider Outpatient follow-up with cardiology Discharge Disposition: OTHER INSTITUTION NOT DEFINED
[2023-12-09 14:35] VITALS: BP 121/78; PULSE 90; TEMP 98.3
== END 2023-12-09 16:15 | disposition home or self-care (01) ==
LOC: EC 08:58 → 6NMEDSUR 12:44
PROVIDERS: ADMIT Internal Medicine; ATTEND Internal Medicine
DX: R07.89 Other chest pain (principal); R10.13 Epigastric pain; G43.909 Migraine, unspecified, not intractable, without status migrainosus; F10.20 Alcohol dependence, uncomplicated; G40.909 Epilepsy, unspecified, not intractable, without status epilepticus; E03.9 Hypothyroidism, unspecified; F31.9 Bipolar disorder, unspecified; F41.9 Anxiety disorder, unspecified; I77.810 Thoracic aortic ectasia; F17.210 Nicotine dependence, cigarettes, uncomplicated; Z59.00 Homelessness unspecified; R00.1 Bradycardia, unspecified; J44.9 Chronic obstructive pulmonary disease, unspecified; D64.9 Anemia, unspecified; Z98.84 Bariatric surgery status; Z79.82 Long term (current) use of aspirin; Z79.899 Other long term (current) drug therapy; Z79.890 Hormone replacement therapy
CPT/HCPCS: 96374; 99285; 36415; 93005; 93017; 93306; 85379; 83880; 80061; 80053; 80048 ×2; 82150; 83690; 83735; 84484; 85025 ×2; 85610; 85730; 71046; 71275; 78452; G0378 ×3; A9500; J2405; J2785; Q9967

== ENCOUNTER 2023-12-16 22:02 | Emergency (ER) | payer MEDICARE, OTHER ==
[2023-12-16 22:12] VITALS: RESP 16
[2023-12-16] MEDS: ACETAMINOPHEN TAB 325 MG TAB PO STA (22:19)
[2023-12-16] MEDS: IBUPROFEN 600 MG TAB PO STA (22:19)
[2023-12-16] MEDS: traMADol 50 MG TAB PO STA (22:45)
--- NOTE | 2023-12-16 23:15 | CT ---
EXAMINATION TYPE: CT brain wo con DATE OF EXAM: 12/16/2023 HISTORY: fall. Head injury. CT DLP: 1154.3 mGycm. Automated Exposure Control for Dose Reduction was Utilized. TECHNIQUE: CT scan of the head is performed without contrast. COMPARISON: None. FINDINGS: There is no acute intracranial hemorrhage or midline shift identified. Ventricles and sul ci within normal limits in size for patient's age. Floyd-white matter differentiation is maintained. O ld fracture deformity medial wall left orbit. The calvarium is intact. The globes are intact and the visualized sinuses are clear. IMPRESSION: No acute intracranial hemorrhage or midline shift.
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
[2023-12-16 23:56] VITALS: BP 155/84; PULSE 83; TEMP 98.3
== END 2023-12-16 23:56 | disposition home or self-care (01) ==
LOC: EC 22:02
DX: S09.90XA Unspecified injury of head, initial encounter (principal); Z87.891 Personal history of nicotine dependence; W18.09XA Striking against other object with subsequent fall, initial encounter
CPT/HCPCS: 70450; 99284

== ENCOUNTER 2023-12-17 10:35 | Emergency (ER) | payer MEDICARE, OTHER ==
[2023-12-17 10:46] VITALS: TEMP 98.4
--- NOTE | 2023-12-17 11:25 | ED ---
Dizziness HPI - General Chief Complaint: Dizziness Stated Complaint: Dizziness Time Seen by Provider: 12/17/23 10:52 Source: patient, EMS, RN notes reviewed Mode of arrival: EMS Limitations: no limitations - History of Present Illness Initial Comments: Is a 58-year-old female with past medical history of migraines and epilepsy reports emergency department via EMS from [facility] for chief complaint of dizziness and headaches. Patient was seen in the last evening for a fall and head injury, CT negative. patient states this pain feels different from her previous migraines, where she takes imitrex. She states that she feels dizzy and 'off'. She denies chest pain or chest pressure, palpitations, photophobia or phonophonia. endorses nausea. States that she mainly takes Imitrex at home which alleviates her migraines and she has not taken this medication since Wednesday. states that her migraine headache is similar symptoms as compared to previous. - Related Data Home Medications Medication Instructions Recorded Confirmed Acetaminophen Tab [Tylenol] 650 mg PO Q4H 12/07/23 12/07/23 Aspirin EC [Ecotrin Low Dose] 81 mg PO DAILY 12/07/23 12/07/23 Atorvastatin [Lipitor] 20 mg PO HS 12/07/23 12/07/23 Ensure 1 can PO DAILY 12/07/23 12/07/23 FLUoxetine HCL [PROzac] 20 mg PO DAILY 12/07/23 12/07/23 Gabapentin 300 mg PO TID 12/07/23 12/07/23 Hyoscyamine Sulfate [Levsin] 0.125 mg PO QID PRN 12/07/23 12/07/23 Levothyroxine Sodium [Synthroid] 50 mcg PO DAILY 12/07/23 12/07/23 Melatonin 10 mg PO HS 12/07/23 12/07/23 Mylanta 30 ml PO Q4H PRN 12/07/23 12/07/23 OLANZapine [ZyPREXA] 20 mg PO BID 12/07/23 12/07/23 OXcarbazepine [Trileptal] 600 mg PO DAILY 12/07/23 12/07/23 Pantoprazole Sodium [Protonix] 40 mg PO DAILY 12/07/23 12/07/23 amLODIPine [Norvasc] 2.5 mg PO DAILY 12/07/23 12/07/23 busPIRone HCl [Buspar] 10 mg PO BID 12/07/23 12/07/23 levETIRAcetam [Keppra] 500 mg PO BID 12/07/23 12/07/23 ondansetron HCL [Zofran] 8 mg PO Q6H PRN 12/07/23 12/07/23 traZODone HCL [Desyrel] 50 - 150 mg PO HS PRN 12/07/23 12/07/23 Allergies Allergy/AdvReac Type Severity Reaction Status Date / Time No Known Allergies Allergy Verified 12/07/23 10:19 Review of Systems ROS Statement: Those systems with pertinent positive or pertinent negative responses have been documented in the HPI. ROS Other: All systems not noted in ROS Statement are negative. Past Medical History Past Medical History: Seizure Disorder Additional Past Medical History / Comment(s): Anemia, Epilepsy History of Any Multi-Drug Resistant Organisms: None Reported Past Surgical History: Bariatric Surgery Additional Past Surgical History / Comment(s): gastric bypass ; 2020 Past Anesthesia/Blood Transfusion Reactions: No Reported Reaction Past Psychological History: No Psychological Hx Reported Smoking Status: Former smoker Past Alcohol Use History: Abuse, Daily Past Drug Use History: None Reported General Exam Limitations: no limitations General appearance: alert, in no apparent distress Head exam: Present: atraumatic, normocephalic, normal inspection Eye exam: Present: normal appearance, PERRL, EOMI. Absent: scleral icterus, conjunctival injection, periorbital swelling ENT exam: Present: normal exam, mucous membranes moist Neck exam: Present: normal inspection. Absent: tenderness, meningismus, lymphadenopathy Respiratory exam: Present: normal lung sounds bilaterally. Absent: respiratory distress, wheezes, rales, rhonchi, stridor Cardiovascular Exam: Present: regular rate, normal rhythm, normal heart sounds. Absent: systolic murmur, diastolic murmur, rubs, gallop, clicks GI/Abdominal exam: Present: soft, normal bowel sounds. Absent: distended, tenderness, guarding, rebound, rigid Extremities exam: Present: normal inspection, full ROM, normal capillary refill. Absent: tenderness, pedal edema, joint swelling, calf tenderness Back exam: Present: normal inspection Neurological exam: Present: alert, oriented X3, CN II-XII intact Psychiatric exam: Present: normal affect, normal mood Skin exam: Present: warm, dry, intact, normal color. Absent: rash Course Vital Signs 12/17/23 12/17/23 12/17/23 10:38 10:44 11:00 Temperature 98.4 F Pulse Rate 60 76 Respiratory 18 22 Rate Blood Pressure 155/100 147/33 O2 Sat by Pulse 98 98 97 Oximetry 12/17/23 12/17/23 12:00 13:00 Temperature Pulse Rate 58 L 62 Respiratory 14 16 Rate Blood Pressure 150/103 156/96 O2 Sat by Pulse 97 98 Oximetry Medical Decision Making - Medical Decision Making Was pt. sent in by a medical professional or institution? @ -[facility] FOR DIZZINESS AFTER HEAD INJURY THAT OCCURRED YESTERDAY EVENING. Did you speak to anyone other than the patient for history? @ -EMS, parent, family, police, friend? Did you review nursing and triage notes? @ -Yes, and I agree, it is accurate with regards to the patient's symptoms. Were old charts reviewed? @ -I reviewed the patient's emergency department note 12/17/[address] the brain is completed with no acute intracranial abnormality noted\ after a fall and subsequent SANTOS Differential Diagnosis? @ -Chest pain, altered mental status abdominal pain women, abdominal pain men, vaginal bleeding, weakness, fever, dyspnea, syncope, headache, dizziness, GI bleed, back pain, seizure Differential Headache: Migraine, tension, cluster, carbon monoxide, central venous thrombosis, pension karma temporal arteritis, acute closure glaucoma, intercranial hemorrhage, mastoiditis, sinusitis, head injury, this is not meant to be an all-inclusive list. EKG interpreted by me (3pts min.)? @ -EKG interpreted by me demonstrating the following: sinus rhythm with sinus arrythmia, ventricular rate 72 BPM, AK interval 155, and QTc 427. no acute signs of ischemia. X-rays interpreted by me (1pt min.)? @ -None CT interpreted by me (1pt min.)? @ -None U/S interpreted by me (1pt. min.)? @ -None What testing was considered but not performed? (CT, X-rays, U/S, labs)? Why? @CT, X-rays, U/S, labs? Why? What meds were considered but not given? Why? @ -None Did you discuss the management of the patient with other professionals? @ -No Did you reconcile home meds? @ -No Was smoking cessation discussed for >3mins.? @ -No Was critical care preformed (if so, how long)? @ -No Were there social determinants of health that impacted care today? How? (Homelessness, low income, unemployed, alcoholism, drug addiction, transportation, low edu. Level, literacy, decrease access to med. care, shelter, rehab)? @ -No Was there de-escalation of care discussed even if they declined? (Discuss DNR or withdrawal of care, Hospice)? @ -No What co-morbidities impacted this encounter? (DM, HTN, Smoking, COPD, CAD, Cancer, CVA, Hep., AIDS, mental health diagnosis, sleep apnea, morbid obesity)? @ -DM, HTN, Smoking, COPD, CAD, Cancer, CVA, Hep., AIDS, mental health diagnosis, sleep apnea, morbid obesity? Was patient admitted / discharged? @ -discharged. 58-year-old female with headache and dizziness. On examination there are no acute neurological deficits noted. Patient vitals are stable upon arrival. She will be evaluated via laboratory studies and symptomatically treated with fluids, Toradol, Zofran, and SC imitrex. Including CBC, CMP and urinalysis unremarkable. Troponin nonelevated. Coagulation profile within normal limits. On reevaluation, patient states that her symptoms have markedly improved after medication ministration. Patient feels comfortable for discharge. All questions answered at bedside and strict return parameters discussed with the patient she is verbalized understanding. Case is stable for discharge back to [place]. Case discussed with Dr. Dykes Undiagnosed new problem with uncertain prognosis? @ -None Drug Therapy requiring intensive monitoring for toxicity (Heparin, Nitro, Insulin, Cardizem)? @ -None Were any procedures done? @ -None Diagnosis/symptom? @ -Headache, dizziness Acute, or Chronic, or Acute on Chronic? @ -Acute Uncomplicated (without systemic symptoms) or Complicated (systemic symptoms)? @ -Uncomplicated Side effects of treatment? @ -None Exacerbation, Progression, or Severe Exacerbation] @ -Not applicable Poses a threat to life or bodily function? @ -No - Lab Data Result diagrams: 12/17/23 11:29 12/17/23 11:29 Lab Results 12/17/23 12/17/23 12/17/23 Range/Units 11:29 11:29 11:29 WBC 5.9 (3.8-10.6) k/uL RBC 4.71 (3.80-5.40) m/uL Hgb 11.4 (11.4-16.0) gm/dL Hct 37.6 (34.0-46.0) % MCV 79.9 L (80.0-100.0) fL MCH 24.1 L (25.0-35.0) pg MCHC 30.2 L (31.0-37.0) g/dL RDW 14.2 (11.5-15.5) % Plt Count 323 (150-450) k/uL MPV 8.0 Neutrophils % 60 % Lymphocytes % 27 % Monocytes % 7 % Eosinophils % 3 % Basophils % 1 % Neutrophils # 3.5 (1.3-7.7) k/uL Lymphocytes # 1.6 (1.0-4.8) k/uL Monocytes # 0.4 (0-1.0) k/uL Eosinophils # 0.2 (0-0.7) k/uL Basophils # 0.1 (0-0.2) k/uL Hypochromasia Marked PT 10.2 (10.0-12.5) sec INR 0.9 (<1.2) Sodium (137-145) mmol/L Potassium (3.5-5.1) mmol/L Chloride (98-107) mmol/L Carbon Dioxide (22-30) mmol/L Anion Gap mmol/L BUN (7-17) mg/dL Creatinine (0.52-1.04) mg/dL Est GFR (CKD-EPI)AfAm (>60 ml/min/1.73 sqM) Est GFR (CKD-EPI)NonAf (>60 ml/min/1.73 sqM) Glucose (74-99) mg/dL Calcium (8.4-10.2) mg/dL Total Bilirubin (0.2-1.3) mg/dL AST (14-36) U/L ALT (4-34) U/L Alkaline Phosphatase (38-126) U/L Troponin I (0.000-0.034) ng/mL Total Protein (6.3-8.2) g/dL Albumin (3.5-5.0) g/dL Urine Color Colorless Urine Appearance Clear (Clear) Urine pH 6.0 (5.0-8.0) Ur Specific Logan 1.017 (1.001-1.035) Urine Protein Negative (Negative) Urine Glucose (UA) Negative (Negative) Urine Ketones Negative (Negative) Urine Blood Negative (Negative) Urine Nitrite Negative (Negative) Urine Bilirubin Negative (Negative) Urine Urobilinogen <2.0 (<2.0) mg/dL Ur Leukocyte Esterase Negative (Negative) 12/17/23 12/17/23 Range/Units 11:29 11:29 WBC (3.8-10.6) k/uL RBC (3.80-5.40) m/uL Hgb (11.4-16.0) gm/dL Hct (34.0-46.0) % MCV (80.0-100.0) fL MCH (25.0-35.0) pg MCHC (31.0-37.0) g/dL RDW (11.5-15.5) % Plt Count (150-450) k/uL MPV Neutrophils % % Lymphocytes % % Monocytes % % Eosinophils % % Basophils % % Neutrophils # (1.3-7.7) k/uL Lymphocytes # (1.0-4.8) k/uL Monocytes # (0-1.0) k/uL Eosinophils # (0-0.7) k/uL Basophils # (0-0.2) k/uL Hypochromasia PT (10.0-12.5) sec INR (<1.2) Sodium 137 (137-145) mmol/L Potassium 5.6 H (3.5-5.1) mmol/L Chloride 110 H (98-107) mmol/L Carbon Dioxide 23 (22-30) mmol/L Anion Gap 4 mmol/L BUN 14 (7-17) mg/dL Creatinine 0.68 (0.52-1.04) mg/dL Est GFR (CKD-EPI)AfAm >90 (>60 ml/min/1.73 sqM) Est GFR (CKD-EPI)NonAf >90 (>60 ml/min/1.73 sqM) Glucose 94 (74-99) mg/dL Calcium 9.2 (8.4-10.2) mg/dL Total Bilirubin 0.5 (0.2-1.3) mg/dL AST 52 H (14-36) U/L ALT 43 H (4-34) U/L Alkaline Phosphatase 87 (38-126) U/L Troponin I <0.012 (0.000-0.034) ng/mL Total Protein 6.9 (6.3-8.2) g/dL Albumin 4.0 (3.5-5.0) g/dL Urine Color Urine Appearance (Clear) Urine pH (5.0-8.0) Ur Specific Logan (1.001-1.035) Urine Protein (Negative) Urine Glucose (UA) (Negative) Urine Ketones (Negative) Urine Blood (Negative) Urine Nitrite (Negative) Urine Bilirubin (Negative) Urine Urobilinogen (<2.0) mg/dL Ur Leukocyte Esterase (Negative) Disposition Clinical Impression: Dizziness, Migraine Disposition: HOME SELF-CARE Condition: Good Instructions (If sedation given, give patient instructions): Dizziness (ED) Additional Instructions: Return to the EC if symptoms worsen or do not improve. Is patient prescribed a controlled substance at d/c from ED?: No Referrals: Loreta Moreno DC, DO [Primary Care Provider] - 1-2 days Time of Disposition: 12:46
[2023-12-17 11:54] LABS: Appearance,Urine Clear (Clear); Bilirubin,Urine Negative (Negative); Blood,Urine Negative (Negative); Color,Urine Colorless; Glucose,Urine (UA) Negative (Negative); Ketones,Urine Negative (Negative); Leukocyte Esterase,Urine Negative (Negative); Nitrite,Urine Negative (Negative); Protein,Urine Negative (Negative); Specific Gravity,Urine 1.017 (1.001-1.035); Urobilinogen,Urine <2.0 mg/dL (<2.0)
[2023-12-17 12:00] LABS: INR 0.9 (<1.2); Prothrombin Time 10.2 sec (10.0-12.5)
[2023-12-17] MEDS: SODIUM CHLORIDE 0.9% 1,000 ML IV STA (12:07)
[2023-12-17] MEDS: MECLIZINE 12.5 MG TAB PO STA (12:07)
[2023-12-17] MEDS: SUMAtriptan succinate 6 MG/0.5 ML VIAL SQ STA (12:08)
[2023-12-17] MEDS: ONDANSETRON 4 MG/2 ML VIAL IVP STA (12:08)
[2023-12-17 12:14] LABS: ALT 43 U/L (4-34); African American GFR (CKD) >90 (>60 ml/min/1.73 sqM); Anion Gap 4 mmol/L; Blood Urea Nitrogen 14 mg/dL (7-17); Calcium 9.2 mg/dL (8.4-10.2); Carbon Dioxide 23 mmol/L (22-30); Chloride 110 mmol/L (98-107); Glucose 94 mg/dL (74-99); Non-African American GFR(CKD) >90 (>60 ml/min/1.73 sqM); Sodium 137 mmol/L (137-145); Total Bilirubin 0.5 mg/dL (0.2-1.3); Total Protein 6.9 g/dL (6.3-8.2)
[2023-12-17 12:25] LABS: AST 52 U/L (14-36); Alkaline Phosphatase 87 U/L (38-126); Potassium 5.6 mmol/L (3.5-5.1)
[2023-12-17 12:31] LABS: Basophils # (A) 0.1 k/uL (0-0.2); Basophils % (A) 1 %; Eosinophils # (A) 0.2 k/uL (0-0.7); Eosinophils % (A) 3 %; HCT 37.6 % (34.0-46.0); HGB 11.4 gm/dL (11.4-16.0); Hypochromasia Marked; Lymphocytes # (A) 1.6 k/uL (1.0-4.8); Lymphocytes % (A) 27 %; MCH 24.1 pg (25.0-35.0); MCHC 30.2 g/dL (31.0-37.0); MCV 79.9 fL (80.0-100.0); Monocytes # (A) 0.4 k/uL (0-1.0); Monocytes % (A) 7 %; Neutrophils # (A) 3.5 k/uL (1.3-7.7); Neutrophils % (A) 60 %; Platelet Count 323 k/uL (150-450); RBC 4.71 m/uL (3.80-5.40); RDW 14.2 % (11.5-15.5); WBC 5.9 k/uL (3.8-10.6)
[2023-12-17 13:28] VITALS: BP 156/96; PULSE 62; RESP 16
== END 2023-12-17 13:39 | disposition home or self-care (01) ==
LOC: EC 10:35
DX: G43.909 Migraine, unspecified, not intractable, without status migrainosus (principal); R42 Dizziness and giddiness; Z87.891 Personal history of nicotine dependence
CPT/HCPCS: 36415; 93005; 80053; 84484; 85025; 85610; 81003; 99284; 96374; 96361; 96372; J3030; J2405